=== PATIENT | male | born 1980 | race Caucasian/White ===

== ENCOUNTER 2021-12-17 07:23 | Emergency (ER) | payer OTHER ==
[~2021-12-17] VITALS: Ht 172.7 cm; Wt 73.0 kg
[~2021-12-17 07:23] MED LIST: DIVA500T1 PO; QUET100T PO
--- NOTE | 2021-12-17 07:25 | NUR ---
Dr. Jackson evaluating pt on [facility] bedside
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
--- NOTE | 2021-12-17 07:27 | NUR ---
Patient BIBA to bed 9
[2021-12-17 07:30] VITALS: BP 151/101
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
--- NOTE | 2021-12-17 07:35 | NUR ---
Dr. Jackson is evaluating pt at bedside
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
[2021-12-17] MEDS ORDERED: BACITRACIN OINT 500 UNITS/GM PKT TP ONE (07:50)
[2021-12-17] MEDS ORDERED: BACI1PAC6 TP (07:53)
[2021-12-17] MEDS ORDERED: CEPH-588 PO (07:53)
--- NOTE | 2021-12-17 07:53 | NUR ---
Pt refusing TDAP shot at this time. States "I don't want a shot in me." Pt advised of risk and benefits per Dr. Jackson. Patient refused. Dr. Jackson at bedside aware.
--- NOTE | 2021-12-17 08:16 | NUR ---
Patient discharged with v/s stable. Written and verbal after care instructions given and explained. Patient alert, oriented and verbalized understanding of instructions. [place] [employer] at bedside with patient; in custody. All questions addressed prior to discharge. ID band removed. Patient advised to follow up with PMD. Rx of Keflex, Bacitracin given. Patient educated on indication of medication including possible reaction and side effects. Opportunity to ask questions provided and answered.
[2021-12-17 08:17] VITALS: BP 138/89
== END 2021-12-17 08:16 ==
LOC: MED 07:23
DX: S01.312A Laceration without foreign body of left ear, initial encounter (principal); F17.200 Nicotine dependence, unspecified, uncomplicated; X58.XXXA Exposure to other specified factors, initial encounter; Y93.89 Activity, other specified; Y92.89 Other specified places as the place of occurrence of the external cause; Y99.8 Other external cause status
CPT/HCPCS: 99283